=== PATIENT | female | born 1940 | race Caucasian/White ===

== ENCOUNTER 2018-04-17 12:15 | Emergency (ER) | payer MEDICARE ==
[2018-04-17 12:33] VITALS: PULSE 57; RESP 18; TEMP 98.3; O2SAT 100
--- NOTE | 2018-04-17 12:54 | ED PDOC ---
Lower Extremity Pain/Injury Time Seen by Provider: 04/17/18 12:37 Chief Complaint (Nursing): Lower Extremity Problem/Injury Chief Complaint (Provider): Left knee pain History Per: Patient Onset/Duration Of Symptoms: Days (x2) Current Symptoms Are (Timing): Still Present Additional Complaint(s): 77 year old female presents to the ED complaining of left knee pain for 2 days. Patient states she has history of "water on the knee" and has had to have fluid removed in the past. The last time she had this done was 2 years ago. Patient has been taking ibuprofen which has provided minimal pain relief. She denies fever or chills, denies recent trauma. Patient states she spoke with her PMD this morning and he told her to come to the ED for further eval. PMD: Luís Mckinney Past Medical History Reviewed: Historical Data, Nursing Documentation, Vital Signs Vital Signs: Last Vital Signs Temp 98.3 F 04/17/18 12:31 Pulse 57 L 04/17/18 12:31 Resp 18 04/17/18 12:31 BP 170/75 H 04/17/18 12:31 Pulse Ox 100 04/17/18 12:31 - Medical History PMH: HTN, Hypercholesterolemia, Hypothyroidism - Surgical History Surgical History: No Surg Hx - Family History Family History: States: No Known Family Hx - Living Arrangements Living Arrangements: With Family - Social History Current smoker - smoking cessation education provided: No Alcohol: None Drugs: Denies - Home Medications Home Medications: Ambulatory Orders Medication Instructions Recorded Methylprednisolone [Medrol Dose 4 mg PO ASDIR #21 mg 04/17/18 Pack (21 tabs)] - Allergies Allergies/Adverse Reactions: Allergies Allergy/AdvReac Type Severity Reaction Status Date / Time No Known Allergies Allergy Verified 04/17/18 12:31 Wells Criteria for PE - Wells Criteria for Pulmonary Embolism Clinical Signs and Symptoms of DVT: Yes P.E is #1 Diagnosis, or Equally Likely: No Heart Rate >100: No Immobilization at least 3 days;Surgery previous 4 weeks: No Previous, objectively diagnosed PE or DVT: No Hemoptysis: No Malignancy w/treatment within 6 months, or palliative: No Total Score: 3 Review of Systems ROS Statement: Except As Marked, All Systems Reviewed And Found Negative Constitutional: Negative for: Fever, Chills Musculoskeletal: Positive for: Other (Left knee pain) Physical Exam - Reviewed Nursing Documentation Reviewed: Yes Vital Signs Reviewed: Yes - Physical Exam Appears: Positive for: Well, Non-toxic, No Acute Distress Head Exam: Positive for: ATRAUMATIC, NORMOCEPHALIC Skin: Positive for: Normal Color, Rash Eye Exam: Positive for: Normal appearance Neck: Positive for: Normal, Painless ROM Extremity: Positive for: Normal ROM, Other (Minimal swelling to the left knee with full ROM. No erythema or warmth to left knee, mild swelling and tenderness to left anterior thigh) Neurologic/Psych: Positive for: Alert, Oriented. Negative for: Motor/Sensory Deficits - ECG O2 Sat by Pulse Oximetry: 100 (RA) Pulse Ox Interpretation: Normal - Other Rad Doppler left leg X-Ray: Read By Radiologist X-Ray Interpretation: no DVT Left knee x-ray X-Ray: Interpreted by Me, Viewed By Me X-Ray Interpretation: no fx, no dis, mild degenerative changes Medical Decision Making Medical Decision Making: Initial Impression: 77 y/o with left knee pain Initial Plan: --Left knee X-ray --Tylenol 975mg PO --US lower extremity vein left Case was discussed with patient's PMD, Dr. Perez who was made aware of diagnostic testing results. Patient given rx for Medrol Dosepak and was referred to Dr. Flower as per Dr. Perez. Karri wrap applied to left knee. Advised ice, elevation and follow-up Thursday with Dr. Perez or with specialist. Scribe Attestation: Documented by Blake Aleman acting as a scribe for Sultana LEMONS. Provider Scribe Attestation: All medical record entries made by the Scribe were at my direction and personally dictated by me. I have reviewed the chart and agree that the record accurately reflects my personal performance of the history, physical exam, medical decision making, and the department course for this patient. I have also personally directed, reviewed, and agree with the discharge instructions and disposition. Procedures - Splinting Location: left knee Pre-Made Type: karri wrap Pre-Proc Neuro Vasc Exam: normal Post-Proc Neuro Vasc Exam: normal Disposition - Clinical Impression Clinical Impression: Knee pain - Patient ED Disposition Is Patient to be Admitted: No Counseled Patient/Family Regarding: Studies Performed, Diagnosis, Need For Followup, Rx Given - Disposition Referrals: Tyosn Flower MD [Staff Provider] - Luís Perez MD [Family Provider] - Disposition: Routine/Home Disposition Time: 14:33 Condition: STABLE Additional Instructions: Ice, rest and elevate affected area. Continue with ibuprofen every 6 hours. Purchase [id number] Tylenol 325 mg tablets and take 2 tablets every 4 hours in addition to the ibuprofen every 6 hrs for pain control. Take prescription meds as directed. Follow-up Thursday with Dr. Perez or with orthopedist. Prescriptions: Methylprednisolone [Medrol Dose Pack (21 tabs)] 4 mg PO ASDIR #21 mg Instructions: Knee Pain (DC) Forms: [facility] ([place])
[2018-04-17 12:55] VITALS: BP 143/75
--- NOTE | 2018-04-17 14:11 | US ---
Date of service: 04/17/2018 PROCEDURE: Left lower extremity venous duplex Doppler. HISTORY: swelling to left leg COMPARISON: None available. TECHNIQUE: Common femoral, superficial femoral, popliteal and posterior tibial veins were evaluated. Flow was assessed with color Doppler, compressibility, assessment of phasic flow and augmentation response. FINDINGS: COMMON FEMORAL VEIN: Unremarkable. SUPERFICIAL FEMORAL VEIN: Unremarkable. POPLITEAL VEIN: Unremarkable. POSTERIOR TIBIAL VEIN: Unremarkable. OTHER FINDINGS: None. IMPRESSION: No evidence of deep venous thrombosis in the left lower extremity.
--- NOTE | 2018-04-17 14:12 | RAD ---
Date of service: 04/17/2018 PROCEDURE: Left Knee Radiographs. HISTORY: Pain. COMPARISON: None. FINDINGS: BONES: No acute fracture. JOINTS: Tricompartmental narrowing with degenerative spurring. JOINT EFFUSION: None. OTHER FINDINGS: Quadriceps tendon enthesophyte. IMPRESSION: No demonstrated fracture or dislocation. Degenerative changes.
== END 2018-04-17 14:45 | disposition home or self-care (01) ==
LOC: H.ER 12:15
DX: M25.562 Pain in left knee (principal); E03.9 Hypothyroidism, unspecified; E78.00 Pure hypercholesterolemia, unspecified; I10 Essential (primary) hypertension